=== PATIENT | male | born 1935 | race Caucasian/White ===

== ENCOUNTER 2019-08-18 15:06 | Inpatient (IN) | payer MEDICARE ==
[2019-08-18] MEDS ORDERED: Adenosine 6 MG/2 ML VIAL ONE (15:36)
[2019-08-18 15:47] LABS: #Basophils 0.1 thou/uL (0.0-0.2); #Eosinphils 0.2 thou/uL (0.0-0.7); #Lymphocytes 2.5 thou/uL (1.20-3.40); #Monocytes 0.8 thou/uL (0.11-0.59); #Neutrophils 8.2 thou/uL (1.40-6.50); %Basophils 0.6 % (0.0-1.0); %Eosinophils 1.6 % (0.0-10.0); %Lymphocytes 21.1 % (21.0-51.0); %Monocytes 6.5 % (0.0-10.0); %Neutrophils 70.1 % (42.0-75.0); Hemoglobin 17.5 g/dL (14.0-18.0); Mean Corpuscular HGB CONC 33.7 g/dL (32.0-36.0); Mean Corpuscular Hemoglobin 32.1 pg (27.0-31.0); Mean Corpuscular Volume 95.4 fL (78.0-98.0); Mean Platelet Volume 6.7 fL (7.4-10.4); Platelet Count 322 thou/uL (130-400); RBC Distribution Width 13.7 % (11.5-14.5); Red Blood Cell (RBC) Count 5.46 mill/uL (4.70-6.10); White Blood Cell (WBC) Count 11.7 thou/uL (4.8-10.8)
[2019-08-18 15:52] LABS: INR-International Normal Ratio 0.9; PTT 26.2 SEC (22.9-36.1); Prothrombin Time 12.4 SEC (12.0-14.7)
[2019-08-18] MEDS ORDERED: Diltiazem 125 MG/25 ML ONE (15:54)
--- NOTE | 2019-08-18 16:02 | RAD ---
EXAM: CHEST ONE VIEW HISTORY: Irregular heart rate COMPARISON: None FINDINGS: A pacing pad overlies the right upper lateral chest. The cardiac silhouette is magnified by projectio n but does appear mildly enlarged. Pulmonary vasculature is within normal limits. The lungs are clear. Degenerative change seen in the spine. Vascular calcifications are seen in the thoracic aorta. IMPRESSION: 1. No acute cardiopulmonary process. 2. Cardiomegaly.
[2019-08-18 16:09] LABS: ALT (SGPT) 31 U/L (8-55); AST (SGOT) 22 U/L (5-34); Alkaline Phosphatase 61 U/L (40-110); Anion Gap 14 mmol/L (10-20); BUN (Urea Nitrogen) 20 mg/dL (8.4-25.7); Bilirubin, Total 0.4 mg/dL (0.2-1.2); Calc. Creatinine Clearance 0 mL/min (70-130); Calcium 9.5 mg/dL (7.8-10.44); Carbon Dioxide 22 mmol/L (23-31); Chloride 104 mmol/L (98-107); Estimated GFR-MDRD 83; Globulin 2.9 g/dL (2.4-3.5); Glucose 101 mg/dL (83-110); Potassium 3.7 mmol/L (3.5-5.1); Protein, Total 6.9 g/dL (5.8-8.1); Sodium 136 mmol/L (136-145)
[2019-08-18] MEDS ORDERED: Aspirin Chewable 81 MG TAB ONE (16:43)
[2019-08-18] MEDS ORDERED: Ondansetron ODT 4 MG TAB PO PRN (17:55)
[2019-08-18] MEDS ORDERED: Ondansetron PF 4 MG/2 ML Vial IVP PRN (17:55)
[2019-08-18] MEDS ORDERED: Metoprolol Tartrate 5 MG/5 ML VIAL IVP PRN (17:58)
[2019-08-18] MEDS ORDERED: Sodium Chloride 0.9% 1,000 ML IV SCH ×2 (18:00→18:45)
--- NOTE | 2019-08-18 18:09 | PDOC.HHP ---
Hospitalist HPI - History of Present Illness Heart palpitations History of Present Illness: PCP: Dr. Asif ([facility]) Healthcare Sales Representative: Dr. Kennedy The patient is a 84/M with PMH significant for HTN and dyslipidemia that presents to the ER for the above complaint. The patient reports that he has been feeling heart palpitations for the past several days, "maybe longer" with associated light headedness. So today, he went to his PCP and had an EKG performed. According to the patient, the EKG read Sinus tachycardia, heart rate 140s. Dr. Kennedy was contacted via telephone and recommended that the patient go to the ER. The patient had his daughter in law drive him to the hospital. The patient reports feeling light headed at times, denies any chest pain, dyspnea, lower extremity swelling, cough, fever or chills. Patient reports that he has not had an echocardiogram in the past year. He stopped his cholesterol medication approximately 3 months ago after developing so lower leg pain. The pain did not resolve with stopping the medication. He has since hurt his low back while lifting a large water container and is trying to schedule a myelogram. ED Course: VS T 98.2F, BP 116/90, HR 145, RR 20, Spo2 96%RA EKG ST vs SVT 140s no ST elevations CXR no acute process Trop negative K 3.7 glucose 101 Given: Adenosine 6mg, then 12mg Cardizem 5mg/hr ASA 324mg 500 mls NS Allergies: NKDA Home Meds: 1. Lisinopril 20 mg po q hs 2. Lisinopril/HCTZ 20/25 po q am Hospitalist ROS - Review of Systems Constitutional: denies: fever, chills, sweats, weakness, malaise, other Eyes: denies: pain, vision change, conjunctivae inflammation, eyelid inflammation, redness, other ENT: denies: ear pain, ear discharge, nose pain, nose discharge, nose congestion , mouth pain, mouth swelling, throat pain, throat swelling, other Respiratory: denies: cough, dry, shortness of breath, hemoptysis, SOB with excertion, pleuritic pain, sputum, wheezing, other Cardiovascular: reports: palpitations, light headedness. denies: chest pain, orthopnea, paroxysmal noc. dyspnea, edema Gastrointestinal: denies: nausea, vomiting, abdominal pain, diarrhea, constipation, melena, hematochezia, other Genitourinary: denies: dysuria, frequency, incontinence, hematuria, retention, other Neurological: denies: weakness, incoordination, change in speech, confusion Hospitalist History - Past Medical History Source: patient Cardiac: reports: HTN, Hyperlipidemia Renal/: reports: Other (Urinary incontinence) - Past Surgical History Past Surgical History: reports: Total Knee Replacement (right), Other (Urinary device in low back) - Family History Family History: reports: cancer, cardiac disorder - Social History Smoking Status: Never smoker Alcohol: reports: None Drugs: reports: none Living Situation: Alone Occupation: Lives in [place], 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 Activity level: independent ambulation - Exam General Appearance: NAD, awake alert Eye: anicteric sclera ENT: normocephalic atraumatic Neck: supple, no JVD Heart: RRR, no murmur, no gallops, no rubs, normal peripheral pulses Respiratory: CTAB, no wheezes, no rales, no ronchi, normal chest expansion, no tachypnea Gastrointestinal: soft, non-tender, normal bowel sounds, no guarding, no rigidity Extremities: no cyanosis, no edema Skin: no rashes Neurological: no focal deficits Psychiatric: normal affect, A&O x 3 Hospitalist Results - Labs Result Diagrams: 08/18/19 15:32 08/18/19 15:32 Lab results: WBC 11.7 thou/uL (4.8-10.8) H 08/18/19 15:32 Hgb 17.5 g/dL (14.0-18.0) 08/18/19 15:32 Hct 52.0 % (42.0-52.0) 08/18/19 15:32 MCV 95.4 fL (78.0-98.0) 08/18/19 15:32 Plt Count 322 thou/uL (130-400) 08/18/19 15:32 Neutrophils % 70.1 % (42.0-75.0) 08/18/19 15:32 Sodium 136 mmol/L (136-145) 08/18/19 15:32 Potassium 3.7 mmol/L (3.5-5.1) 08/18/19 15:32 Chloride 104 mmol/L (98-107) 08/18/19 15:32 Carbon Dioxide 22 mmol/L (23-31) L 08/18/19 15:32 BUN 20 mg/dL (8.4-25.7) 08/18/19 15:32 Creatinine 0.88 mg/dL (0.7-1.3) 08/18/19 15:32 Glucose 101 mg/dL (83-110) 08/18/19 15:32 Calcium 9.5 mg/dL (7.8-10.44) 08/18/19 15:32 Total Bilirubin 0.4 mg/dL (0.2-1.2) 08/18/19 15:32 AST 22 U/L (5-34) 08/18/19 15:32 ALT 31 U/L (8-55) 08/18/19 15:32 Alkaline Phosphatase 61 U/L (40-110) 08/18/19 15:32 Troponin I Less than 0.010 ng/mL (< 0.028) 08/18/19 15:32 Serum Total Protein 6.9 g/dL (5.8-8.1) 08/18/19 15:32 Albumin 4.0 g/dL (3.4-4.8) 08/18/19 15:32 - EKG Interpretation EKG: Sinus tach vs SVT 140s - Radiology Interpretation Chest x-ray Status: report reviewed by sd Hospitalist H&P A/P - Problem (1) Sinus tachycardia Code(s): R00.0 - TACHYCARDIA, UNSPECIFIED Status: Acute Assessment and Plan: Admit to telemetry floor, observation status Expected length of stay < 2 midnights EKG appears sinus tachycardia, regular rhythm Upon exam, patient on cardizem drip at 5mg/hr, asymptomatic EKG appears sinus tachycardia Will continue cardizem drip and ASA Will give metoprolol 5mg IVP x [address] Kennedy Will order echocardiogram Will check BNP, TSH, FLP and Mag levels Will start Metoprolol tartrate 12.5mg po BID (2) Light headedness Code(s): R42 - DIZZINESS AND GIDDINESS Status: Acute Assessment and Plan: Secondary to problem #1 (3) HTN (hypertension) Code(s): I10 - ESSENTIAL (PRIMARY) HYPERTENSION Status: Chronic Assessment and Plan: Blood pressure stable Restart home medications Lisinopril 20/25mg po q am Lisinopril 20mg po q hs (4) Dyslipidemia Code(s): E78.5 - HYPERLIPIDEMIA, UNSPECIFIED Status: Chronic Assessment and Plan: Reports stopping statin 3 months ago secondary to LE pain Will get FLP - Plan Plan: Consult walking program pepcid GI prophylaxis LMWH DVT prophylaxis Full Code DPOA is son, Lukas Braden Contact is daughter in law, Alexandria at [phone]. Discussed case with Dr. Benedict.
[2019-08-18] MEDS ORDERED: Magnesium 2 GM/50 ML 2 GM in Premix Bag 1 BAG IVPB SCH (19:00)
[2019-08-18] MEDS: Famotidine 20 MG TAB PO SCH (21:36)
[2019-08-18] MEDS: Metoprolol Tartrate 25 MG TAB PO SCH (21:36)
[2019-08-18] MEDS: Enoxaparin Sodium 40 MG/0.4 ML SYRINGE SC SCH (21:36)
[2019-08-18] MEDS: Lisinopril 20 MG TAB PO SCH (21:37)
[2019-08-18 22:42] VITALS: BMI 34.4
[2019-08-18 23:50] LABS: Amphetamine Not Detected (NotDetected); Barbiturates Screen Not Detected (NotDetected); Benzodiazepine Screen Not Detected (NotDetected); Cocaine Metabolite Screen Not Detected (NotDetected); Medtox Control Line Valid? VALID (VALID); Medtox Reader # READER 4; Methadone Not Detected (NotDetected); Methamphetamine Not Detected (NotDetected); Opiate Screen Not Detected (NotDetected); Oxycodone Screen Not Detected (NotDetected); Phencyclidine (PCP) Not Detected (NotDetected); THC/Cannabinoid Screen Not Detected (NotDetected); Tricyclic Screen Not Detected (NotDetected)
[2019-08-19] MEDS ORDERED: Magnesium 2 GM/50 ML 2 GM in Premix Bag 1 BAG IVPB SCH (01:15)
[2019-08-19] MEDS: Acetaminophen 325 MG TAB PO PRN ×3 (01:23→21:00)
[2019-08-19 04:17] LABS: #Basophils 0.1 thou/uL (0.0-0.2); #Eosinphils 0.3 thou/uL (0.0-0.7); #Lymphocytes 2.5 thou/uL (1.20-3.40); #Monocytes 0.7 thou/uL (0.11-0.59); #Neutrophils 6.7 thou/uL (1.40-6.50); %Basophils 1.2 % (0.0-1.0); %Eosinophils 3.1 % (0.0-10.0); %Lymphocytes 24.1 % (21.0-51.0); %Monocytes 6.4 % (0.0-10.0); %Neutrophils 65.2 % (42.0-75.0); Mean Corpuscular HGB CONC 33.7 g/dL (32.0-36.0); Mean Corpuscular Hemoglobin 32.5 pg (27.0-31.0); Mean Corpuscular Volume 96.5 fL (78.0-98.0); Mean Platelet Volume 6.8 fL (7.4-10.4); Platelet Count 277 thou/uL (130-400); RBC Distribution Width 13.6 % (11.5-14.5); Red Blood Cell (RBC) Count 4.91 mill/uL (4.70-6.10); White Blood Cell (WBC) Count 10.3 thou/uL (4.8-10.8)
[2019-08-19 05:38] LABS: Triglycerides 251 mg/dL (Less than 150)
[2019-08-19 05:43] LABS: LDL Cholesterol, Calculated 98 mg/dL
[2019-08-19 06:22] LABS: Chloride 105 mmol/L (98-107); Potassium 3.8 mmol/L (3.5-5.1); Sodium 138 mmol/L (136-145)
[2019-08-19 06:26] LABS: Calcium 9.3 mg/dL (7.8-10.44); Glucose 95 mg/dL (83-110)
[2019-08-19 06:28] LABS: Anion Gap 11 mmol/L (10-20); Carbon Dioxide 26 mmol/L (23-31)
[2019-08-19 06:30] LABS: BUN (Urea Nitrogen) 17 mg/dL (8.4-25.7); Calc. Creatinine Clearance 110 mL/min (70-130); Estimated GFR-MDRD 86
[2019-08-19 06:31] LABS: Cholesterol 200 mg/dl (< 200 Desired); Magnesium 2.4 mg/dL (1.6-2.6)
[2019-08-19 06:32] LABS: Cardiac Risk 5.1 (Less than 4.5); HDL Cholesterol 39 mg/dL (>60 Neg Risk)
--- NOTE | 2019-08-19 09:23 | PDOC.HOSPP ---
- Subjective Encounter Date: 08/19/19 Encounter Time: 09:21 Subjective: Mr. Braden was seen today in follow-up of tachycardia. He says he feels fine, with the exception of back pain ( which is chronic ). He denies chest pain or shortness of breath. He does not have any leg pain or swelling. - Objective Vital Signs & Weight: Vital Signs (12 hours) Temp Pulse Resp BP BP Pulse Ox 08/19/19 07:15 97.4 F L 111 H 16 146/90 H 97 08/19/19 04:51 97.7 F 102 H 20 110/78 96 08/18/19 23:15 97 100/75 Weight Admit Weight 260 lb Weight 261 lb I&O: 08/18/19 08/19/19 08/20/19 06:59 06:59 06:59 Intake Total 710 Output Total 605 Balance 105 Result Diagrams: 08/19/19 04:04 08/19/19 04:04 Hospitalist ROS - Medication Medications: Active Medications Generic Name Dose Route Start Last Admin Trade Name Praneethq PRN Reason Stop Dose Admin Acetaminophen 650 mg 08/18/19 17:55 08/19/19 01:23 Tylenol PO 650 mg Q4H PRN Administration Headache/Fever/Mild Pain (1-3) Enoxaparin Sodium 40 mg 08/18/19 21:00 08/18/19 21:36 Lovenox SC 40 mg 2100 MATHEW Administration Famotidine 20 mg 08/18/19 21:00 08/18/19 21:36 Pepcid PO 20 mg BID MATHEW Administration Lisinopril 20 mg 08/18/19 21:00 08/18/19 21:37 Zestril PO 20 mg HS MATHEW Administration Metoprolol Tartrate 12.5 mg 08/18/19 21:00 08/18/19 21:36 Lopressor PO 12.5 mg BID MATHEW Administration - Exam Eye: PERRL Heart: RRR, no gallops, no rubs, normal peripheral pulses Respiratory: CTAB, no wheezes, no rales, no ronchi, normal chest expansion, no tachypnea, normal percussion Gastrointestinal: soft, non-tender, non-distended, normal bowel sounds, no palpable masses, no hepatomegaly Extremities: no cyanosis, no clubbing, no edema Psychiatric: normal affect, A&O x 3 Hosp A/P (1) Right bundle branch block Code(s): I45.10 - UNSPECIFIED RIGHT BUNDLE-BRANCH BLOCK Status: Acute (2) Light headedness Code(s): R42 - DIZZINESS AND GIDDINESS Status: Acute (3) Sinus tachycardia Code(s): R00.0 - TACHYCARDIA, UNSPECIFIED Status: Acute (4) HTN (hypertension) Code(s): I10 - ESSENTIAL (PRIMARY) HYPERTENSION Status: Chronic (5) Dyslipidemia Code(s): E78.5 - HYPERLIPIDEMIA, UNSPECIFIED Status: Chronic - Plan * Sinus Tachycardia- continue Cardizem drip- the rhythm may be something other than sinus tachycardia. Will await Cardiology evaluation * Continue Cardizem in the interim, and Echo is pending * HTN- blood pressure is a bit elevated- but trending down- will continue to monitor * Dyslipidemia- stable
[2019-08-19] MEDS: Metoprolol Tartrate 25 MG TAB PO SCH ×2 (09:37→21:06)
[2019-08-19] MEDS: Famotidine 20 MG TAB PO SCH ×2 (09:38→21:00)
[2019-08-19] MEDS: Aspirin 325 MG TAB PO SCH (09:38)
[2019-08-19] MEDS: Lisinopril/Hydrochlorothiazide 20/25 mg Tablet PO SCH (09:38)
[2019-08-19] MEDS: Diltiazem HCl 125 MG, Admixture Fee 1 EACH in Sodium Chloride 0.9% 100 ML IVPB SCH (14:20)
[2019-08-19] MEDS ORDERED: Milk Of Magnesia 30 ML UDCUP PO PRN (15:01)
--- NOTE | 2019-08-19 15:41 | CON ---
DATE OF CONSULTATION: REASON FOR CONSULTATION: Tachycardia. Dr. Jagjit Kennedy is his primary talent acquisition program manager. HISTORY OF PRESENT ILLNESS: Mr. Braden is a pleasant 84-year-old gentleman who has been seen and evaluated by Dr. Jagjit Kennedy for some time. He recently presented with tachycardia. This has occurred over the last week. He has frequently noticed his heart rate in the 140s to 150s. He was seen and evaluated by his primary care doctor, Chris. Given his EKG, he was decided to proceed to the emergency room at [place]. He was given adenosine while in the emergency room with the tracings not available. I am unsure if they showed underlying atrial flutter. The patient started on IV Cardizem with heart rate is in the 110s to 120s. PAST MEDICAL HISTORY: Hypertension and hyperlipidemia. FAMILY HISTORY: Positive CAD. SOCIAL HISTORY: No current tobacco or alcohol use. He recently lost his to influenza. HOME MEDICATIONS: Include: 1. Lisinopril. 2. Colace. 3. CoQ10. 4. Testosterone. 5. [place]-3 fatty acids. 6. Multivitamin. 7. Lisinopril/hydrochlorothiazide. 8. Glucosamine. REVIEW OF SYSTEMS: A 10-point review of systems is reviewed as above, otherwise negative. PHYSICAL EXAMINATION: GENERAL: Patient is a pleasant male who is in no acute distress. The patient appears their stated age. VITAL SIGNS: Blood pressure 143/90, pulse 111, and respirations 20. NEUROLOGIC: The patient is alert and oriented x3 with no focal neurologic deficits. HEENT: Sclerae without icterus. Mouth has moist mucous membranes with normal pallor. NECK: No JVD. Carotid upstroke brisk. No bruits bilaterally. LUNGS: Clear to auscultation with unlabored respirations. BACK: No scoliosis or kyphosis. CARDIAC: Regular rate and rhythm with normal S1 and S2. No S3 or S4 noted. No significant rubs, murmurs, thrills, or gallops noted throughout the precordium. PMI is not displaced. There is no parasternal heave. ABDOMEN: Soft, nontender, nondistended. No peritoneal signs present. No hepatosplenomegaly. No abnormal striae. EXTREMITIES: 2+ femoral and 2+ dorsalis pedis pulses. No cyanosis, clubbing, or edema. SKIN: No gross abnormalities. PERTINENT LABORATORY DATA: Hemoglobin 16, hematocrit 47.4. Creatinine 0.85, triglyceride 251, cholesterol 200, TSH 1.61. IMPRESSION: 1. Tachycardia. 2. Hypertension. RECOMMENDATIONS: Mr. Braden's rhythm appears to be consistent with atypical atrial fibrillation, but certainly appears to look like sinus tachycardia. We will ask Dr. Pola Tineo to evaluate the patient for potential atrial flutter that is the underlying cause. It was felt to be sinus tachycardia with CT underlying cuprit. His TSH is within normal limits. He is not febrile. Job ID: [id number]
[2019-08-19] MEDS: Lisinopril 20 MG TAB PO SCH (21:00)
[2019-08-19] MEDS: Enoxaparin Sodium 40 MG/0.4 ML SYRINGE SC SCH (21:06)
[2019-08-20] MEDS: Diltiazem HCl 125 MG, Admixture Fee 1 EACH in Sodium Chloride 0.9% 100 ML IVPB SCH (00:25)
[2019-08-20] MEDS: Metoprolol Tartrate 25 MG TAB PO SCH ×2 (05:07→20:37)
[2019-08-20] MEDS: Aspirin 325 MG TAB PO SCH (05:07)
[2019-08-20] MEDS: Lisinopril/Hydrochlorothiazide 20/25 mg Tablet PO SCH (05:07)
[2019-08-20] MEDS: Famotidine 20 MG TAB PO SCH ×2 (05:07→20:37)
[2019-08-20] MEDS ORDERED: Lidocaine 1% PF 5 ML VIAL ONE (08:34)
[2019-08-20] MEDS ORDERED: PROPOFOL 200 MG/20 ML VIAL ONE (08:34)
[2019-08-20] MEDS ORDERED: Succinylcholine Chloride 20 MG/ML 10 ml SYRINGE FS ONE (08:34)
[2019-08-20] MEDS ORDERED: Rocuronium Bromide 10 MG/ML (10ML VIAL) ONE (08:34)
[2019-08-20] MEDS ORDERED: Glycopyrrolate 0.2 MG/ML 5 ML SYRINGE ONE (08:34)
[2019-08-20] MEDS ORDERED: EPHEDRINE 25 MG/5 ML SYRINGE ONE (08:34)
[2019-08-20] MEDS ORDERED: Ondansetron PF 4 MG/2 ML Vial ONE (08:34)
[2019-08-20] MEDS ORDERED: PHENYLEPHRINE-NS 100 MCG/ML 10 ML SYRINGE ONE (08:34)
--- NOTE | 2019-08-20 11:25 | PDOC.HOSPP ---
- Subjective Encounter Date: 08/20/19 Encounter Time: 11:22 Subjective: Mr. Braden was seen today in follow-up of arrhythmia. His only complaint is that of back pain. He deis chest pain or shortness of breath. - Objective Vital Signs & Weight: Vital Signs (12 hours) Temp Pulse Resp BP Pulse Ox 08/20/19 05:07 94 08/20/19 03:18 98.1 F 94 18 132/100 H 95 Weight Admit Weight 260 lb Weight 261 lb 6.4 oz I&O: 08/19/19 08/20/19 08/21/19 06:59 06:59 06:59 Intake Total 710 1670 Output Total 605 2095 Balance 105 -425 Result Diagrams: 08/19/19 04:04 08/19/19 04:04 Hospitalist ROS - Medication Medications: Active Medications Generic Name Dose Route Start Last Admin Trade Name Freq PRN Reason Stop Dose Admin Acetaminophen 650 mg 08/18/19 17:55 08/19/19 21:00 Tylenol PO 650 mg Q4H PRN Administration Headache/Fever/Mild Pain (1-3) Aspirin 325 mg 08/19/19 09:00 08/20/19 05:07 Aspirin PO 325 mg DAILY MATHEW Administration Enoxaparin Sodium 40 mg 08/18/19 21:00 08/19/19 21:06 Lovenox SC 40 mg 2100 MATHEW Administration Famotidine 20 mg 08/18/19 21:00 08/20/19 05:07 Pepcid PO 20 mg BID MATHEW Administration Lisinopril/HCTZ 1 tab 08/19/19 09:00 08/20/19 05:07 Prinizide 20-25 PO 1 tab DAILY MATHEW Administration Diltiazem HCl 125 mg/ 125 mls @ 5 mls/hr 08/18/19 22:30 08/20/19 00:25 Miscellaneous Medication 1 IVPB 125 mls each/ Sodium Chloride INF MATHEW Administration Protocol Lisinopril 20 mg 08/18/19 21:00 08/19/19 21:00 Zestril PO 20 mg HS MATHEW Administration Magnesium Hydroxide 30 ml 08/19/19 15:01 08/19/19 15:22 Milk Of Magnesium PO 30 ml DAILYPRN PRN Administration Constipation Metoprolol Tartrate 12.5 mg 08/18/19 21:00 08/20/19 05:07 Lopressor PO 12.5 mg BID MATHEW Administration - Exam Eye: PERRL Heart: RRR, no murmur, no gallops, no rubs, normal peripheral pulses Respiratory: CTAB, no wheezes, no rales, no ronchi, normal chest expansion, no tachypnea Gastrointestinal: soft, non-tender, non-distended, normal bowel sounds, no palpable masses, no hepatomegaly Extremities: no cyanosis, no edema Hosp A/P (1) Right bundle branch block Code(s): I45.10 - UNSPECIFIED RIGHT BUNDLE-BRANCH BLOCK Status: Acute (2) Light headedness Code(s): R42 - DIZZINESS AND GIDDINESS Status: Acute (3) Sinus tachycardia Code(s): R00.0 - TACHYCARDIA, UNSPECIFIED Status: Acute (4) HTN (hypertension) Code(s): I10 - ESSENTIAL (PRIMARY) HYPERTENSION Status: Chronic (5) Dyslipidemia Code(s): E78.5 - HYPERLIPIDEMIA, UNSPECIFIED Status: Chronic - Plan * Sinus Tachycardia vs. Atypical AFIB/ AFlutter- patient is to go for EP evaluation today * Continue Cardizem cardizem drip * Echo results noted , normal EF and no regional wall motion abnormalities * HTN- blood pressure is overall ok * Dyslipidemia- stable
[2019-08-20] MEDS ORDERED: Fentanyl 100 MCG/2 ML VIAL ONE (12:32)
[2019-08-20] MEDS ORDERED: Heparin 10,000 UNITS/1 ML VIAL ONE (12:32)
[2019-08-20] MEDS ORDERED: Lidocaine 2% Jelly 5 ML TUBE ONE (12:33)
--- NOTE | 2019-08-20 13:59 | CON ---
DATE OF CONSULTATION: 08/19/2019 This is Ariella Dalton NP dictating a report for Pola Tineo MD. REASON FOR CONSULTATION: SVT. CONSULTATION PERFORMED BY: Pola Tineo MD HISTORY OF PRESENT ILLNESS: Mr. Braden is an 84-year-old gentleman, who has been the patient of Dr. Parrish in the past. He recently presented to [facility] with tachycardia and heart racing that has been occurring more sustained for the past week. He was reporting heart rates up to 140 to 150 beats per minute. He has had palpitations in the past. There is some report that he was evaluated by his primary care provider in [place] and given his elevated heart rate, he was redirected to the emergency room. Reportedly, he was given adenosine in the ER, though tracings are not available. Electrophysiology consultation was requested for assistance in managing his SVT. He has been placed on a diltiazem drip at 10 mg/hour and his heart rate have stabilized to approximately 110 beats per minute. REVIEW OF SYSTEMS: Positive for heart racing and palpitations. Negative for chest pain, pressure, syncope, near-syncope, stroke, or stroke-like symptoms. Otherwise, 12-point review of systems is unremarkable and as per HPI. PAST MEDICAL HISTORY: 1. Hypertension. 2. Hyperlipidemia. FAMILY HISTORY: Positive for coronary artery disease. SOCIAL HISTORY: Denies alcohol, tobacco, or illicit drug use. Recently lost his to influenza. ALLERGIES: NO KNOWN DRUG ALLERGIES. HOME MEDICATIONS: 1. Lisinopril. 2. Colace. 3. CoQ10. 4. Testosterone. 5. [place]-3. 6. Multivitamin. 7. Lisinopril/hydrochlorothiazide. 8. Glucosamine. PHYSICAL EXAMINATION: VITAL SIGNS: Temperature 98.3, heart rate 111, oxygen 97% on room air, blood pressure 148/108, and respirations 16. GENERAL: The patient is alert and oriented. Speech is clear. Affect is appropriate. He is in no apparent distress. At the time of the exam, he is resting comfortably in bed. HEENT: Normocephalic atraumatic. His sclerae are anicteric. EOMs are intact. Oral mucosa is moist and pink with adequate dentition. NECK: Supple without jugular venous distention. There is no lymphadenopathy. CARDIAC: Heart rate is regularly regular, but rapid, crisp S1 and S2. No significant murmur, rubs, or gallops. PMI is nondisplaced. LUNGS: Clear to auscultation bilaterally without wheezes, crackles, or rhonchi. Respirations are even and unlabored with good bilateral excursion. ABDOMEN: Soft and nontender without palpable masses. EXTREMITIES: Warm and dry to touch without clubbing, cyanosis, or edema. NEUROLOGIC: Grossly intact and nonfocal. Gait was not assessed. DATABASE: Hematology was unremarkable. Platelet count is 322. Chemistry; potassium is 3.8, creatinine 0.85. Troponins are negative. BNP 25. TSH 1.6. Echocardiogram was performed and pending interpretation. Telemetry and EKGs show atrial tachycardia with ventricular rates moderately controlled at 110 beats per minute. Tracings on admission show a faster atrial tachycardia of 140 to 150 beats per minute. IMPRESSION: 1. Atrial tachycardia, sustained and symptomatic. 2. Hypertension. PLAN AND RECOMMENDATIONS: Mr. Braden has EKGs and telemetry tracings clearly demonstrating an atrial tachycardia. There are definitive step increases from his sinus rhythm to onset in determination of his atrial tachycardia. Sinus tachycardia would be more gradual onset and offset. We discussed treatment options including simple rate control medications, powerful antiarrhythmic medications, and ablation. At this point, the patient favors ablation option. He is on a moderate to high dose of diltiazem with limited rate control success, so I do not feel this is unreasonable. I am concerned that if he try antiarrhythmic therapy, this may be unsuccessful and if discharged from the hospital, the patient may have a quick return back. So, we will expedite this procedure and have it performed during this hospital stay. We discussed the risks, benefits, and alternatives to ablation. Risks including pain, bruising, swelling, bleeding as well as infection at the access sites, abnormal heart rhythms, bradycardia, and possible need for pacing therapy, pericardial effusion and tamponade and arrhythmia recurrence. The patient voices understanding and wishes to proceed at the earliest convenience. We will attempt for scheduling tomorrow and keep him n.p.o. after midnight. Thank you for allowing me to participate in the care of this patient. Job ID: [id number]
[2019-08-20] MEDS ORDERED: Phenylephrine 10 MG/ML VIAL ONE (14:11)
[2019-08-20] MEDS ORDERED: Isoproterenol 0.2 MG/1 ML AMP ONE (14:25)
[2019-08-20] MEDS ORDERED: SUGAMMADEX SODIUM 500 MG/5 ML VIAL ONE (14:57)
[2019-08-20] MEDS ORDERED: Acetaminophen/Codeine 30-300mg Tablet PO PRN ×2 (15:46)
[2019-08-20] MEDS: Lisinopril 20 MG TAB PO SCH (20:37)
[2019-08-20] MEDS: Enoxaparin Sodium 40 MG/0.4 ML SYRINGE SC SCH (20:38)
[2019-08-21 08:01] VITALS: TEMP 97.7
[2019-08-21] MEDS: Famotidine 20 MG TAB PO SCH (08:49)
[2019-08-21] MEDS: Lisinopril/Hydrochlorothiazide 20/25 mg Tablet PO SCH (08:49)
[2019-08-21] MEDS: Aspirin 325 MG TAB PO SCH (08:49)
[2019-08-21] MEDS: Metoprolol Tartrate 25 MG TAB PO SCH (08:50)
--- NOTE | 2019-08-21 11:34 | PDOC.HOSPP ---
- Subjective Encounter Date: 08/21/19 Encounter Time: 11:33 Subjective: Mr. Braden was seen today in follow-up of atrial tachycardia. He is post ablation , and feels fine. He does not have any complaints. - Objective Vital Signs & Weight: Vital Signs (12 hours) Temp Pulse Resp BP BP Pulse Ox 08/21/19 08:49 76 144/61 H 08/21/19 07:09 97.7 F 76 16 144/61 H 96 08/21/19 03:50 98.7 F 75 18 131/78 95 08/21/19 00:01 68 Weight Admit Weight 260 lb Weight 252 lb 9.6 oz I&O: 08/20/19 08/21/19 08/22/19 06:59 06:59 06:59 Intake Total 1670 925 Output Total 2022 1250 Balance -425 -325 Result Diagrams: 08/19/19 04:04 08/19/19 04:04 Hospitalist ROS - Medication Medications: Active Medications Generic Name Dose Route Start Last Admin Trade Name Freq PRN Reason Stop Dose Admin Acetaminophen 650 mg 08/18/19 17:55 08/19/19 21:00 Tylenol PO 650 mg Q4H PRN Administration Headache/Fever/Mild Pain (1-3) Aspirin 325 mg 08/19/19 09:00 08/21/19 08:49 Aspirin PO 325 mg DAILY MATHEW Administration Enoxaparin Sodium 40 mg 08/18/19 21:00 08/20/19 20:38 Lovenox SC 40 mg 2100 MATHEW Administration Famotidine 20 mg 08/18/19 21:00 08/21/19 08:49 Pepcid PO 20 mg BID MATHEW Administration Lisinopril/HCTZ 1 tab 08/19/19 09:00 08/21/19 08:49 Prinizide 20-25 PO 1 tab DAILY MATHEW Administration Diltiazem HCl 125 mg/ 125 mls @ 5 mls/hr 08/18/19 22:30 08/20/19 00:25 Miscellaneous Medication 1 IVPB 125 mls each/ Sodium Chloride INF MATHEW Administration Protocol Lisinopril 20 mg 08/18/19 21:00 08/20/19 20:37 Zestril PO 20 mg HS MATHEW Administration Magnesium Hydroxide 30 ml 08/19/19 15:01 08/19/19 15:22 Milk Of Magnesium PO 30 ml DAILYPRN PRN Administration Constipation Metoprolol Tartrate 12.5 mg 08/18/19 21:00 08/21/19 08:50 Lopressor PO 12.5 mg BID MATHEW Administration - Exam Eye: PERRL Heart: RRR, no murmur, no gallops, no rubs Respiratory: CTAB, no wheezes, no rales Hosp A/P (1) Right bundle branch block Code(s): I45.10 - UNSPECIFIED RIGHT BUNDLE-BRANCH BLOCK Status: Acute (2) Light headedness Code(s): R42 - DIZZINESS AND GIDDINESS Status: Acute (3) Sinus tachycardia Code(s): R00.0 - TACHYCARDIA, UNSPECIFIED Status: Acute (4) HTN (hypertension) Code(s): I10 - ESSENTIAL (PRIMARY) HYPERTENSION Status: Chronic (5) Dyslipidemia Code(s): E78.5 - HYPERLIPIDEMIA, UNSPECIFIED Status: Chronic - Plan * Atrial Tachycardia- he is now in sinus, at a rate of around 70. * He is stable for discharge home
--- NOTE | 2019-08-21 12:15 | DIS ---
DATE OF ADMISSION: 08/18/2019 DATE OF DISCHARGE: 08/21/2019 PRIMARY CARE PHYSICIAN: Dr. Lukas Montanez. DISCHARGE DISPOSITION: Home. DISCHARGE DIAGNOSES: 1. Atrial tachycardia. 2. Hypertension. 3. Hyperlipidemia. 4. Urinary incontinence. DISCHARGE MEDICATIONS: Include: 1. Lipitor 10 mg at bedtime. 2. Aspirin 81 mg daily. 3. CoQ10 30 mg daily. 4. [place]-3 fish oil one capsule twice a day. 5. Multivitamins once daily. 6. Lisinopril/hydrochlorothiazide 20/12.5, one tablet daily as well as lisinopril 20 mg at bedtime. 7. Glucosamine-Chondroitin 1 tablet daily. 8. Docusate 100 mg daily. CODE STATUS: Full code. ALLERGIES: NO KNOWN DRUG ALLERGIES. IMAGING AND PROCEDURES DURING THE HOSPITAL STAY: He had an echocardiogram in which the ejection fraction was estimated at 50% to 55%. Some E/A flow reversal was noted, suggestive of diastolic dysfunction, and the patient had an EP study with an atrial tachycardia ablation. HOSPITAL COURSE: Mr. Braden is a pleasant gentleman who presented to the emergency room after he noted palpitations. He noted that his heart was racing. He did not have any symptoms of dizziness or feeling lightheaded, but it lasted for some time. He came to the ER where he was found to be in atrial tachycardia. He was started on a Cardizem drip with some improvement in his heart rate. Cardiology was consulted, and the casino cashier manager felt that he would benefit from an electrophysiological study or an EP study. Dr. Tineo was consulted. He underwent EP study and ablation of atrial tachycardia with good results. The following day, he remained in sinus rhythm, and he is being discharged home. He was asked to restart aspirin as well as Lipitor in addition to his other home medications. He will need to follow up with his primary care physician in 1 to 2 weeks. Job ID: [id number]
[2019-08-21 12:59] VITALS: BP 136/85
--- NOTE | 2019-08-21 14:00 | OP ---
DATE OF PROCEDURE: 08/20/2019 PROCEDURE PERFORMED: Electrophysiology study and radiofrequency ablation. ADDITIONAL REFERRING PHYSICIAN: Luis Dias MD REASON FOR PROCEDURE: Mr. Braden is an 84-year-old male with prior history of hypertension, who presenting with sustained palpitations and a near syncope with EKG consistent with atrial tachycardia, sudden onset noted, rates are 120 up to 140, mild heart rate decrease achieved only with the diltiazem. He is here for an EP study and radiofrequency ablation. DESCRIPTION OF PROCEDURE: The patient received general anesthesia by Anesthesia specialist. Both femoral venous area was prepped, draped, and accessed under ultrasound guidance with a Multipurpose needle. On the left side, an 11-Faroese sheath was used to advance an intracardiac echocardiogram probe to the right atrium, which was used to monitor catheter manipulation as well as the pericardial space throughout the procedure. Also from the left side, a Preface sheath was advanced to the inferior vena cava and in turn it was used to advance a duo-Deca catheter into the right atrium and CS position. From the right side, an 8-Faroese short sheath was introduced, through which a ThermoCool SFST catheter was advanced to the right atrium and a 3D map of the right atrium, His bundle, and CS positions were obtained. The baseline rhythm was in atrial tachycardia with 1:1 AV conduction. The ventricular cycle length about 540 milliseconds, the QRS duration was 80 milliseconds, QT 386 milliseconds, AH 135, and HV 61 milliseconds. AV Wenckebach cycle length was seen at 330 milliseconds. Retrograde Wenckebach cycle length was 280 milliseconds. The AV brandon ERP was 600/300 milliseconds. The earliest atrial activation of the atrial tachycardia was noted in the CR 1112/1314 lead. With the ThermoCool SFST catheter, activation map was obtained and the earliest activation was elicited. Radiofrequency ablation was delivered at this location, a total of 15 lesion with total duration of 8 minutes and 3 seconds at 40 gabriel delivered. We were able to achieve termination of the atrial tachycardia with the ablation. Also ablation-induced transient exhalation was seen during the winters. With catheter manipulation, though spontaneous induction atrial fibrillation was seen during the case, and later during ablation, the atrial fibrillation stopped and did not recur, did not require cardioversion. Following that, baseline EP study was performed. Reinduction of the atrial tachycardia was attempted. We were able to induce an atrial tachycardia on Isuprel only with cycle length about 360 milliseconds with similar activation pattern as the initial but slower tachycardia. Further radiofrequency ablations were delivered in this area. Following that, no atrial tachycardia was inducible. At the end of the case, the cardiac silhouette did not change and also intracardiac echocardiogram probe reveals no changes and mild baseline pericardial effusion. LV systolic function appears to be normal. CONCLUSION: 1. Baseline right atrial tachycardia, mapped to the tricuspid valve anulus about 8 o'clock position with at this location radiofrequency ablation eliminated re- inducibility. 2. Transient atrial fibrillation seen, which were terminated during ablations and did not recur. 3. No additional atrial arrhythmias induced. 4. No evidence of accessory pathway. 5. No evidence of dual AV brandon physiology present. 6. Normal AV brandon and sinus brandon function. PLAN: Stop diltiazem. Monitor for recurrent atrial arrhythmias. Add enteric-coated aspirin therapy only unless more rapid atrial fibrillation like arrhythmias are seen. Job ID: [id number] [facility]
--- NOTE | 2019-08-21 16:04 | PDOC.EP ---
- Subjective Date: 08/21/19 Time: 08:00 Interval History: follow up post ablation for ATach. Feels great today and eager to go home. No complaints - Review of Systems Constitutional: denies: chills, fever, malaise, sweats, weakness, other Respiratory: denies: cough, pleuritic pain, shortness of breath Cardiology: denies: chest pain, edema, heart racing, light headedness, orthopnea , paroxysmal noc. dyspnea, palpitations, passing out, pleuritic pain, pressure, swelling - Objective Allergies/Adverse Reactions: Allergies Allergy/AdvReac Type Severity Reaction Status Date / Time No Known Drug Allergies Allergy Verified 08/18/19 21:34 Vital Signs & Weight: Vital Signs Temp Pulse Resp BP BP BP Pulse Ox 08/21/19 12:00 78 16 136/85 97 08/21/19 08:49 76 144/61 H 08/21/19 07:09 97.7 F 76 16 144/61 H 96 Admit Weight 260 lb Weight 252 lb 9.6 oz I/O: I/O 08/20/19 08/21/19 08/22/19 06:59 06:59 06:59 Intake Total 1670 925 Output Total 2095 1250 Balance -425 -325 - Physical Exam General: alert & oriented x3, appears well, no apparent distress, speech clear, affect appropriate HEENT: mucus membranes moist Neck: supple neck, midline trachea, no JVD/HJR, no masses, no bruit, no lymphadenopathy, no thromegaly Cardiology: regular rate and rhythm, no murmur, regular rate, regular rhythm, PMI nondisplaced Lungs: clear to auscultation, normal breath sounds, normal exam, no wheeze, rales, rhonchi, no wheezes, no rales, no rhonchi Neurology: cranial nerve 2-12 intact, sensory function intact, no lateralizing findings - Labs Result Diagrams: 08/19/19 04:04 08/19/19 04:04 - EKG Interpretation EKG Method: Telemetry EKG shows: Sinus rhythm - Assessment/Plan Assessment/Plan: EP STUDY CONCLUSIONS: 1. Baseline right atrial tachycardia, mapped to the tricuspid valve anulus about 8 o'clock position via radiofrequency ablation without re-inducibility. 2. Transient atrial fibrillation seen, which were terminated during ablations and did not recur. 3. No additional atrial arrhythmias induced. 4. No evidence of accessory pathway. 5. No evidence of dual AV brandon physiology present. 6. Normal AV brandon and sinus brandon function. PLAN: Stop diltiazem. Monitor for recurrent atrial arrhythmias. Add enteric-coated aspirin therapy only. If more atrial fibrillation arrhythmias are seen NOAC therapy would be indicated. OK for DC. Will follow up in 6 weeks and contact my office with any concerns.
[2019-08-21] MEDS ORDERED: Atorvastatin Calcium 10 MG TAB PO SCH (21:00)
--- NOTE | 2019-08-22 06:02 | EKG ---
Test Reason : Blood Pressure : / mmHG Vent. Rate : 065 BPM Atrial Rate : 065 BPM P-R Int : 186 ms QRS Dur : 160 ms QT Int : 468 ms P-R-T Axes : 000 -60 -28 degrees QTc Int : 486 ms Normal sinus rhythm Right bundle branch block Left anterior fascicular block Bifascicular block Minimal voltage criteria for LVH, may be normal variant Abnormal ECG When compared with ECG of 18-AUG-2019 15:47, (Unconfirmed) Vent. rate has decreased BY 74 BPM QRS duration has increased Criteria for Inferior infarct are no longer Present T wave inversion no longer evident in Anterior leads Confirmed by DR. Vincent AHN ([id number]) on 08/22/2019 6:02:19 AM Referred By: BRITTNEE Confirmed By:DR. Vincent AHN
== END 2019-08-21 13:22 | disposition home or self-care (01) | DRG 274 ==
LOC: ERS 15:06 → OBSVTOIN 17:30 → INTOOBSV 17:30 → 2NO 17:30
PROVIDERS: ADMIT Family Medicine; ATTEND Internal Medicine
PROC: 5A2204Z Restoration of Cardiac Rhythm, Single (ICD-10-PCS; 2019-08-18)
PROC: 02583ZZ Destruction of Conduction Mechanism, Percutaneous Approach (ICD-10-PCS; principal; 2019-08-20)
PROC: 4A023FZ Measurement of Cardiac Rhythm, Percutaneous Approach (ICD-10-PCS; 2019-08-20)
PROC: 4A0234Z Measurement of Cardiac Electrical Activity, Percutaneous Approach (ICD-10-PCS; 2019-08-20)
PROC: 02K83ZZ Map Conduction Mechanism, Percutaneous Approach (ICD-10-PCS; 2019-08-20)
DX: I47.1 Supraventricular tachycardia (principal); I10 Essential (primary) hypertension; E78.5 Hyperlipidemia, unspecified; R32 Unspecified urinary incontinence; Z96.651 Presence of right artificial knee joint; Z96.0 Presence of urogenital implants; G89.29 Other chronic pain; M54.9 Dorsalgia, unspecified; I45.10 Unspecified right bundle-branch block; Z79.899 Other long term (current) drug therapy
CPT/HCPCS: 36415; 71045; 76942; 80048; 80053; 80061; 80306; 83735; 83880; 84443; 84484; 85025; 85610; 85730; 92960; 93005; 93010; 93306; 93613; 93621; 93623; 93653; 93662; 94760; 96365; 96366; C1731; C1732; C1759; C1769; J0153; J1644; J1650; J2001; J2370; J2405; J2704; J3010; J3475; J3490

== ENCOUNTER 2019-09-11 07:17 | Day surgery (SDC) | payer MEDICARE ==
[2019-09-10 15:05] VITALS: BMI 35.4
[2019-09-11] MEDS ORDERED: Iopamidol-M 200 41% 20 ML VIAL ONE (10:21)
--- NOTE | 2019-09-11 10:35 | CT ---
CT lumbar spine with contrast: (CT lumbar myelogram) 09/11/2019 HISTORY: 84-year-old male with lumbar radiculopathy COMPARISON: 02/22/2016. FINDINGS: 5 lumbar-type vertebrae. Vertebral body heights are maintained. Mild left-convex lateral curvature. N o spondylolysis or spondylolisthesis. Conus medullaris terminates at L2. T12-L1: Essentially normal. L1-2: Minimal disc bulge encroachment upon bilateral neural foramina. Otherwise normal. L2-3: Greater degree of mild retrolisthesis of L2 on L3 compared to previously. The disc bulge is sli ghtly larger than before, asymmetrically greater on the right side where it effaces the right ventral aspect of the thecal sac. Overall mild central spinal canal stenosis. Right L3 nerve root is displaced by the right paracentral component of disc bulge. Moderate right neural foraminal stenosis, worse than before. Also moderate left neural foraminal stenosis. No high-grade disc space n arrowing. L3-4: New vacuum disc phenomenon. Mild disc space narrowing. The previously demonstrated diffuse disc bulge is again demonstrated, encroaching upon bilateral neural foramina, causing moderate neural foraminal stenosis. There is a new superimposed central and right paracentral disc herniation with kan perior migration. Mild ligamentum flavum thickening. Mild bilateral facet DJD. Moderate to severe thecal sac stenosis, worse than before. L4-5: New vacuum disc phenomenon. Mild disc space narrowing. Diffuse disc bulge. Moderate ligamentum flavum thickening. Mild bilateral facet DJD. Mild to moderate right neural foraminal stenosis. Moderate left neural foraminal stenosis. Mild to moderate central spinal canal stenosis. The left concepcion ral foraminal stenosis appears slightly worse than before. L5-S1: Vacuum disc phenomenon is now worse. Mild disc space narrowing. Diffuse disc bulge. Vacuum dis c phenomenon gas has reached left anterior epidural space with slight superior migration indicating small left paracentral disc extrusion which does not indent the thecal sac. Thecal sac remains genero us in caliber. No nerve root impingement within the spinal canal. Mild to moderate right neural foraminal stenosis. Moderate to severe left neural foraminal stenosis, chronic due to moderate to sev ere left facet DJD. Mild to moderate right facet DJD. No major interval change at this level. IMPRESSION: 1. Interval progression of degenerative disc disease since 02/22/2016 at several levels. 2. Most notably at L3-4, where there is a new right paracentral focal disc herniation superimposed on the diffuse disc bulge, causing thecal sac stenosis. 3. Multiple levels of neural foraminal stenosis. The worst is on the left at L5-S1, followed by left L4-5. 4. At L2-3, right paracentral and right lateral asymmetric portion of disc bulge posteriorly displace s right L3 nerve root.
[2019-09-11 11:00] VITALS: BP 164/93; TEMP 98.2
--- NOTE | 2019-09-11 15:37 | RAD ---
MYELOGRAM LUMBAR: DATE: 09/11/2019 HISTORY: 84-year-old male with lumbar radiculopathy TECHNIQUE: Signed informed consent obtained. Patient placed prone on fluoroscopy table. Skin of lower back prepa red and draped in usual sterile fashion. 25-gauge needle used to apply buffered lidocaine superficially and deeply. Level selected:L1-2. Approach:right paramedian interlaminar. 22-gauge spinal needle advanced into spinal canal under brief, intermittent fluoroscopy. Upon return of clear CSF, 10 mL Isovue [id number] media was injected into the intrathecal space. Spinal needle was removed. Patient tolerated procedure well. No complications. Total fluoroscopy time:1.9 minutes. Dose area product:683.6 uGy*m^2. FINDINGS: Generator implanted in subcutaneous fat posterior to right lower flank, with 2 electrical leads exten ding into the sacrum. Mild to moderate degenerative disc disease at several levels. No spondylolisthesis. Vertebral body he ights are maintained. Mild left-lateral curvature. Postinjection image demonstrates stenosis of the thecal sac at several levels, especially at L3-4. IMPRESSION: Lumbar spondylosis. See separate report of subsequent CT lumbar myelogram.
== END 2019-09-11 10:15 | disposition home or self-care (01) ==
LOC: RAD 07:17 → EDSTATUS 08:00 → RAD 10:15
PROVIDERS: ATTEND Neurological Surgery
PROC: B01B1ZZ Fluoroscopy of Spinal Cord using Low Osmolar Contrast (ICD-10-PCS; principal; 2019-09-11)
DX: M47.26 Other spondylosis with radiculopathy, lumbar region (principal); M51.16 Intervertebral disc disorders with radiculopathy, lumbar region; M48.061 Spinal stenosis, lumbar region without neurogenic claudication; I10 Essential (primary) hypertension; E78.00 Pure hypercholesterolemia, unspecified; E78.5 Hyperlipidemia, unspecified; G62.9 Polyneuropathy, unspecified; Z79.82 Long term (current) use of aspirin; Z79.899 Other long term (current) drug therapy
CPT/HCPCS: 62304; 72132; Q9966